=== PATIENT | male | born 1955 | race Two or more races ===

== ENCOUNTER 2016-06-20 07:03 | Day surgery (SDC) | payer BC, MEDICARE ==
[2016-06-17 12:37] LABS: Urine RBC None Seen /hpf (0 - 3)
[2016-06-17 12:51] LABS: Basophils # (auto) 0 uL; Basophils % (auto) 0.5 % (0.0-2.0); Eosinophils # (auto) 0.1 uL; Eosinophils % (auto) 1.5 % (0.0-7.0); Hematocrit 44.5 % (41.0-53.0); Hemoglobin 14.8 g/dL (13.5-17.5); Lymphocytes # (auto) 2.5 uL; Lymphocytes % (auto) 31.3 % (10.0-50.0); Mean Corpuscular Hemoglobin 31.1 pg (28.0-32.0); Mean Corpuscular Hgb Conc. 33.2 g/dL (32.0-36.0); Mean Corpuscular Volume 93.8 fL (80.0-100.0); Mean Platelet Volume 8.5 fL (7.4-10.4); Monocytes # (auto) 0.9 uL; Monocytes % (auto) 10.9 % (0.0-12.0); Neutrophils # (auto) 4.5 uL; Neutrophils % (auto) 55.8 % (37.0-80.0); Platelet Count (auto) 247 10^3/uL (140-450); Red Cell Distribution Width 12.7 % (11.6-16.0)
[2016-06-17 12:53] LABS: Urine Bilirubin Negative (Negative); Urine Blood Negative /uL (Negative); Urine Color Yellow (Yellow); Urine Glucose Normal (Normal); Urine Ketone Negative (Negative); Urine Nitrite Negative (Negative); Urine Urobilinogen Normal (Negative)
[2016-06-17 13:10] LABS: INR 0.95 (0.9-1.15); Partial Thromboplastin Time 29.2 sec (22.64-33.71); Prothrombin Time 10.3 sec (9.37-12.3)
[2016-06-17 13:12] LABS: Albumin 3.9 g/dL (3.4-5.0); BUN/Creatinine Ratio 14.8; Bilirubin, Total 0.3 mg/dL (0.2-1.0); Calcium 9.3 mg/dL (8.5-10.1); Potassium 4.4 mmol/L (3.5-5.1); Total Protein 7.7 g/dL (6.4-8.2)
[~2016-06-20] VITALS: Ht 177.8 cm; Wt 122.5 kg
[~2016-06-20 07:03] MED LIST: FINA5TAB4 PO; HYDR-531 PO; LISI-646 PO; METF-489 PO; TADA5TAB11 PO; TAMS0.4C36 PO; [UNRECOGNIZED DRUG - CODE] PO
[2016-06-20] MEDS ORDERED: fentaNYL CITRATE 100 MCG/2 ML VL ONE (08:00)
[2016-06-20] MEDS ORDERED: MIDAZOLAM HCL 1MG/1ML-2 ML VIAL ONE (08:00)
[2016-06-20] MEDS ORDERED: MEPERIDINE HCL (50 MG/ML) 1 ML VIAL ONE (08:00)
[2016-06-20] MEDS ORDERED: CIPROFLOXACIN 400MG/200ML 200 ML IV ONE (08:14)
[2016-06-20] MEDS ORDERED: DEXAMETHASONE SOD PHOS 10MG/1ML VIAL INJ ONE (08:19)
[2016-06-20] MEDS ORDERED: PROPOFOL 10 MG/ML 20 ML IV ONE (08:19)
[2016-06-20] MEDS ORDERED: PHENYLEPHRINE HCL 10 MG/ML VL IV ONE (08:29)
[2016-06-20] MEDS ORDERED: MIDAZOLAM HCL 1MG/1ML-2 ML VIAL IV PRN (09:00)
[2016-06-20] MEDS ORDERED: LABETALOL HCL 5 MG/ML 4ML SYRINGE IV PRN (09:00)
[2016-06-20] MEDS ORDERED: ONDANSETRON HCL 4 MG/2 ML VIAL IV ONE (09:00)
[2016-06-20] MEDS ORDERED: HYDROmorphone HCL 2 MG/ML VL IV PRN (09:00)
[2016-06-20] MEDS ORDERED: MORPHINE SULF INJ 2 MG/ML SYRINGE 1ML IV PRN (09:00)
[2016-06-20] MEDS ORDERED: ePHEDrine SULFATE 50 MG/ML AMP IV PRN (09:00)
[2016-06-20] MEDS ORDERED: SUCCINYLCHOLINE CHLORIDE 20 MG/ML 10ML VIAL IV ONE (09:00)
[2016-06-20] MEDS ORDERED: KETOROLAC TROMETH 30 MG/ML 1ML VIAL IV ONE (09:00)
[2016-06-20] MEDS ORDERED: BELLADONNA ALKAL/OPIUM (16.2/30MG) RECT SUPP PR ONE (09:30)
[2016-06-20 10:45] VITALS: BP 132/74
== END 2016-06-20 10:50 | disposition home or self-care (01) ==
LOC: SUR 07:03
PROVIDERS: ATTEND Urology
DX: N40.1 Benign prostatic hyperplasia with lower urinary tract symptoms (principal); N32.0 Bladder-neck obstruction; E66.01 Morbid (severe) obesity due to excess calories; E11.9 Type 2 diabetes mellitus without complications; I10 Essential (primary) hypertension; Z90.49 Acquired absence of other specified parts of digestive tract
CPT/HCPCS: 36415; 52649; 80053; 81001; 85025; 85610; 85730; J0330; J0744; J1100; J1170; J2175; J2250; J2370; J2704; J3010

== ENCOUNTER 2022-12-04 15:58 | Inpatient (IN) | payer OTHER, MEDICARE ==
[~2022-12-04] VITALS: Ht 177.8 cm; Wt 112.5 kg
[~2022-12-04 15:58] MED LIST changes: -LISI-646 PO; +LISI20TA56 PO
[2022-12-04 17:27] LABS: Basophils # (auto) 0.1 10 ^3/uL (0-0.2); Basophils % (auto) 0.5 % (0.0-2.0); Eosinophils # (auto) 0.1 10 ^3/uL (0-0.8); Eosinophils % (auto) 0.9 % (0.0-7.0); Hematocrit 42.7 % (41.0-53.0); Hemoglobin 14.8 g/dL (13.5-17.5); Lymphocytes # (auto) 1.6 10 ^3/uL (0.4-5.4); Lymphocytes % (auto) 15.8 % (10.0-50.0); Mean Corpuscular Hemoglobin 31.7 pg (28.0-32.0); Mean Corpuscular Hgb Conc. 34.6 g/dL (32.0-36.0); Mean Corpuscular Volume 91.4 fL (80.0-100.0); Monocytes # (auto) 0.8 10 ^3/uL (0-1.3); Monocytes % (auto) 7.9 % (0.0-12.0); Neutrophils # (auto) 7.5 10 ^3/uL (1.6-8.6); Neutrophils % (auto) 74.9 % (37.0-80.0); Nucleated Red Blood Cells % 0.1 %; Red Blood Cells 4.67 10^6/uL (4.5-5.90); Red Cell Distribution Width 12.9 % (11.8-14.3); White Blood Cell 10.1 10^3/uL (4.4-10.8)
[2022-12-04 17:57] LABS: INR 1.06 (0.9-1.15); Prothrombin Time 11.1 sec (9.3-11.8)
[2022-12-04 19:43] LABS: Urine Bacteria NONE SEEN /hpf (None Seen); Urine Blood 3+ /uL (Negative); Urine Clarity CLOUDY (Clear); Urine Color Red (Yellow); Urine Protein, UAD 2+ (Negative); Urine Urobilinogen Normal (Negative); Urine WBC 24 /hpf (0 - 3)
[2022-12-04 19:45] LABS: Urine Specific Gravity 1.024 (1.001-1.035)
[2022-12-04] MEDS ORDERED: ONDANSETRON HCL 4 MG/2 ML VIAL IV ONE (21:45)
[2022-12-04] MEDS ORDERED: MORPHINE SULFATE 4 MG/ML SYR/VIAL IV ONE ×2 (21:45→23:30)
[2022-12-04] MEDS ORDERED: LIDOCAINE 2% JELLY 11ml (GLYDO) UR ONE ×2 (22:15→23:30)
[2022-12-04 22:17] VITALS: PULSE 65; RESP 12; O2SAT 97
[2022-12-05] MEDS ORDERED: LIDOCAINE 2% JELLY 11ml (GLYDO) UR ONE (00:30)
[2022-12-05] MEDS ORDERED: MORPHINE SULFATE 4 MG/ML SYR/VIAL IV ONE (00:30)
[2022-12-05] MEDS ORDERED: MORPHINE SULFATE INJ 2 MG/ml SYRG IV PRN ×2 (02:30→10:30)
[2022-12-05] MEDS ORDERED: DEXTROSE (50%) 50ML SYRG IV PRN (02:30)
[2022-12-05] MEDS ORDERED: hydrALAZINE HCL 20 MG/ML VL IV PRN ×2 (02:30→11:00)
[2022-12-05] MEDS ORDERED: NITROGLYCERIN 0.4 MG SL TAB SL PRN ×2 (02:30→10:30)
[2022-12-05] MEDS ORDERED: ACETAMINOPHEN 325 MG TAB PO PRN ×2 (02:30→03:45)
[2022-12-05] MEDS ORDERED: ONDANSETRON HCL 4 MG/2 ML VIAL IV PRN ×3 (02:30→11:00)
[2022-12-05] MEDS ORDERED: HYDROcodone-ACET 5/325MG TAB PO PRN ×3 (02:45→03:45)
[2022-12-05 02:51] LABS: Hematocrit 41.4 % (41.0-53.0); Hemoglobin 14.2 g/dL (13.5-17.5)
[2022-12-05] MEDS: MORPHINE SULFATE INJ 2 MG/ml SYRG IV PRN ×2 (02:58→03:03)
[2022-12-05] MEDS ORDERED: hydrALAZINE HCL 10 MG TAB PO PRN (03:45)
[2022-12-05 03:53] LABS: Chloride 105 mmol/L (98-107); Potassium 3.9 mmol/L (3.5-5.1); Sodium 136 mmol/L (136-145)
[2022-12-05 03:54] LABS: Anion Gap 9 (5-15); Calcium 9.6 mg/dL (8.7-10.4); Carbon Dioxide 22 mmol/L (20-30)
[2022-12-05 03:59] LABS: BUN/Creatinine Ratio 14.1 (10.0-20.0); Blood Urea Nitrogen 14 mg/dL (9-23); Glucose 160 mg/dL (74-106)
[2022-12-05] MEDS ORDERED: MORPHINE SULFATE 4 MG/ML SYR/VIAL IV PRN ×2 (06:00→06:30)
[2022-12-05] MEDS ORDERED: SODIUM CHLORIDE 0.9% 1,000 ML IV ONE (06:00)
[2022-12-05] MEDS ORDERED: PIPERACILLIN-TAZOB 3.375GM 100 ML IV ONE ×2 (06:00)
[2022-12-05] MEDS ORDERED: levoFLOXacin 500MG 100 ML IV SCH (06:30)
[2022-12-05] MEDS ORDERED: LISINOPRIL 20 MG TAB PO SCH ×2 (06:30→10:00)
[2022-12-05] MEDS ORDERED: InsuLIN REG 1unit/0.01ml Soln (100units/ml) SC SCH (07:00)
[2022-12-05] MEDS ORDERED: ACCU-CHEK COMFORT CURVE STRIP VI SCH (07:00)
[2022-12-05 08:00] VITALS: PULSE 90; RESP 14; O2SAT 97
[2022-12-05] MEDS ORDERED: PROPOFOL 10 MG/ML 20 ML IV ONE (09:47)
[2022-12-05] MEDS ORDERED: LIDOCAINE 2% (LOCAL ANESTH.) PF 5ml SDV ONE (09:47)
[2022-12-05] MEDS ORDERED: DexAMETHasone SOD PHOS 10MG/1ML VIAL INJ ONE (09:48)
[2022-12-05] MEDS ORDERED: GLYCOPYRROLATE 0.2 MG/ML 1ML VIAL ONE (09:48)
[2022-12-05] MEDS ORDERED: ONDANSETRON HCL 4 MG/2 ML VIAL ONE (09:48)
[2022-12-05] MEDS ORDERED: fentaNYL CITRATE 100 MCG/2 ML VL ONE (09:48)
[2022-12-05] MEDS ORDERED: levoFLOXacin 500MG 100 ML IV ONE (10:00)
[2022-12-05] MEDS ORDERED: LISINOPRIL 20 MG TAB PO ONE (10:00)
[2022-12-05] MEDS ORDERED: cefTRIAXone 1GM/50ML D5W 50 ML IV SCH (10:00)
[2022-12-05] MEDS ORDERED: ePHEDrine SULFATE 50 MG/ML AMP ONE (10:05)
[2022-12-05 10:53] VITALS: TEMP 98.2; O2SAT 99
[2022-12-05] MEDS ORDERED: NALOXONE HCL 0.4 MG/ML VIAL IV PRN (11:00)
[2022-12-05] MEDS ORDERED: ePHEDrine SULFATE 50 MG/ML AMP IV PRN (11:00)
[2022-12-05] MEDS ORDERED: fentaNYL CITRATE 100 MCG/2 ML VL IV PRN (11:00)
[2022-12-05] MEDS ORDERED: FLUMAZENIL 0.1 MG/ML INJ 10ML MDV IV PRN (11:00)
[2022-12-05] MEDS ORDERED: LABETALOL HCL 5 MG/ML 4ML SYRINGE IV PRN (11:00)
[2022-12-05] MEDS: HYDROmorphone HCL 2 MG/ML VL/or syr IV PRN ×2 (11:34→11:48)
[2022-12-05] MEDS ORDERED: LEVO500T91 PO (12:13)
[2022-12-05 12:15] VITALS: BP 133/78; PULSE 92; RESP 17; O2SAT 95
[2022-12-05] MEDS ORDERED: PHENYLEPHRINE HCL 10 MG/ML VL IV ONE (12:19)
== END 2022-12-05 12:20 | disposition home or self-care (01) | DRG 669 ==
LOC: ER 15:58 → TELE 12-05 10:24
PROVIDERS: ADMIT Internal Medicine; ATTEND Internal Medicine
PROC: 0T5C8ZZ Destruction of Bladder Neck, Via Natural or Artificial Opening Endoscopic (ICD-10-PCS; 2022-12-05)
PROC: 0TCC8ZZ Extirpation of Matter from Bladder Neck, Via Natural or Artificial Opening Endoscopic (ICD-10-PCS; principal; 2022-12-05 09:55)
DX: S37.30XA Unspecified injury of urethra, initial encounter (principal); N13.8 Other obstructive and reflux uropathy; N39.0 Urinary tract infection, site not specified; E11.9 Type 2 diabetes mellitus without complications; I10 Essential (primary) hypertension; N40.1 Benign prostatic hyperplasia with lower urinary tract symptoms; Z96.619 Presence of unspecified artificial shoulder joint; R33.8 Other retention of urine; X58.XXXA Exposure to other specified factors, initial encounter; R31.0 Gross hematuria; Z79.899 Other long term (current) drug therapy; Z83.3 Family history of diabetes mellitus; Z90.79 Acquired absence of other genital organ(s); Z90.49 Acquired absence of other specified parts of digestive tract; Z88.1 Allergy status to other antibiotic agents; Y93.89 Activity, other specified; Y92.89 Other specified places as the place of occurrence of the external cause; Y99.8 Other external cause status
CPT/HCPCS: 36415; 71045; 74176; 80048; 81001; 85014; 85018; 85025; 85610; 85730; 86850; 86900; 86901; G0378; J1100; J1956; J2001; J2405; J2704